=== PATIENT | female | born 1975 | race Caucasian/White ===

== ENCOUNTER 2019-02-22 13:32 | Inpatient (IN) | payer MEDICAID | END 2019-02-24 16:18 | disposition left against medical advice (07) | LOC: ER 13:32 → TELE 16:26 → TELE-WESTW 20:26 | DX: B20 Human immunodeficiency virus [HIV] disease (principal); E43 Unspecified severe protein-calorie malnutrition; R62.7 Adult failure to thrive; E87.6 Hypokalemia; R59.0 Localized enlarged lymph nodes ==